=== PATIENT | male | born 1985 | race Caucasian/White ===

== ENCOUNTER 2024-04-09 21:32 | Emergency (ER) | payer SELFPAY ==
[~2024-04-09] VITALS: Ht 165.1 cm; Wt 73.0 kg
[2024-04-09 21:47] VITALS: BP 146/71; PULSE 85; RESP 18; TEMP 98.6; O2SAT 99
== END 2024-04-10 01:21 | disposition home or self-care (01) ==
LOC: ER 21:32
DX: S00.511A Abrasion of lip, initial encounter (principal); F10.129 Alcohol abuse with intoxication, unspecified; G92.9 Unspecified toxic encephalopathy; R41.82 Altered mental status, unspecified; Y08.89XA Assault by other specified means, initial encounter; Y93.89 Activity, other specified; Y92.89 Other specified places as the place of occurrence of the external cause; Y99.8 Other external cause status
CPT/HCPCS: 70486; 99284